=== PATIENT | male | born 1980 | race Two or more races ===

== ENCOUNTER 2017-04-25 13:12 | Outpatient (CLI) | payer BC ==
--- NOTE | 2017-04-25 15:45 | Diagnostic Imaging Report ---
Indication: COUGH Technique: Two views of the chest Comparison: none Findings: Unusual large metal bars traverse the anterior thoracic wall, reportedly placed surgically. There is slight blunting of the bilateral costophrenic sulci on the lateral view, consistent with small effusions. Note that the costophrenic angles are obscured by the overlying metal on the PA view. The remainder of the lungs are clear. The heart size is normal. Impression: Positive for small bilateral pleural effusions Unusual postsurgical changes, as described
== END 2017-04-25 15:12 | disposition home or self-care (01) ==
LOC: RAD 13:12
DX: R05 Cough (principal); J90 Pleural effusion, not elsewhere classified
CPT/HCPCS: 71020